=== PATIENT | female | born 1995 | race African-American/Black ===

== ENCOUNTER 2017-07-26 06:25 | Emergency (ER) | payer MEDICAID ==
[~2017-07-26] VITALS: Ht 157.5 cm; Wt 78.0 kg
[2017-07-26] MEDS ORDERED: SODIUM CHLORIDE 0.9% 1,000 ML IV ONE (07:40)
[2017-07-26 08:03] LABS: BASOPHILS % 0.1 % (0.0-2.0); EOSINOPHILS % 0.3 % (0.0-5.0); HEMATOCRIT. 32.4 % (36.0-48.0); HEMOGLOBIN. 11.2 g/dL (12.0-16.0); LYMPHOCYTES % 14.3 % (20.0-50.0); MEAN CORPUSCULAR HEMOGLOBIN 31.4 pg (28.0-32.0); MEAN CORPUSCULAR VOLUME 90.5 fL (81.0-99.0); MEAN PLATELET VOLUME 7.9 fl (7.4-10.4); MONOCYTES % 6.9 % (2.0-8.0); NEUTROPHILS % 78.4 % (40.0-76.0); PLATELET 299 x1000/uL (130-400); RED BLOOD CELL COUNT 3.58 mill/uL (4.2-5.4); RED CELL DISTRIBUTION WIDTH 13.9 % (11.6-14.6)
[2017-07-26] MEDS ORDERED: ACETAMINOPHEN 325MG TABLET PO ONE (08:15)
[2017-07-26 08:20] LABS: CLARITY URINE TURBID (CLEAR); COLOR URINE DARK YELLOW (YELLOW); GLUCOSE URINE NEGATIVE (NEGATIVE); KETONES URINE TRACE (NEGATIVE); LEUKOCYTE ESTERASE URINE 2+ (NEGATIVE); NITRITE URINE NEGATIVE (NEGATIVE); OCCULT BLOOD URINE NEGATIVE (NEGATIVE); PH URINE 5.5 (4.5-8.0); PROTEIN URINE 1+ (NEGATIVE); SPECIFIC GRAVITY URINE 1.029 (1.005-1.030)
[2017-07-26 08:25] LABS: CARBON DIOXIDE 25 mEq/L (21-32); CHLORIDE 105 mEq/L (98-107)
[2017-07-26 08:34] LABS: B-HCG QUANTITATIVE 7421 mIU/mL (<3)
[2017-07-26 08:44] LABS: *AMPHETAMINES SCREEN URINE NEGATIVE (NEGATIVE); *BARBITURATES SCREEN URINE NEGATIVE (NEGATIVE); *BENZODIAZEPINES SCREEN URINE NEGATIVE (NEGATIVE); *COCAINE SCREEN URINE NEGATIVE (NEGATIVE); CANNABINOID URINE SCREEN NEGATIVE (NEGATIVE); METHADONE URINE SCREEN NEGATIVE (NEGATIVE); OPIATES URINE SCREEN NEGATIVE (NEGATIVE); PHENCYCLIDINE URINE SCREEN NEGATIVE (NEGATIVE)
[2017-07-26 11:16] VITALS: BP 111/45
== END 2017-07-26 11:30 | disposition home or self-care (01) ==
LOC: ER 06:39
DX: O26.892 Other specified pregnancy related conditions, second trimester (principal); S00.83XA Contusion of other part of head, initial encounter; R10.9 Unspecified abdominal pain; S60.221A Contusion of right hand, initial encounter; S60.211A Contusion of right wrist, initial encounter; O9A.212 Injury, poisoning and certain other consequences of external causes complicating pregnancy, second trimester; J45.909 Unspecified asthma, uncomplicated; Z3A.20 20 weeks gestation of pregnancy
CPT/HCPCS: 36415; 73100; 73120; 73560; 76805; 80053; 80305; 81001; 81025; 84702; 85025; 96360; 96361; 99285; J7030; Z7610

== ENCOUNTER 2020-01-01 08:00 | Emergency (ER) | payer MEDICAID ==
[~2020-01-01] VITALS: Ht 160 cm; Wt 73.0 kg
[2020-01-01] MEDS ORDERED: SODIUM CHLORIDE 0.9% 1,000 ML IV ONE (08:54)
[2020-01-01] MEDS ORDERED: ONDANSETRON HCL 4MG/2ML INJ IV ONE (09:00)
[2020-01-01] MEDS ORDERED: ACETAMINOPHEN 325MG TABLET PO ONE (09:00)
[2020-01-01 09:32] LABS: CLARITY URINE CLOUDY (CLEAR); COLOR URINE DARK YELLOW (YELLOW); KETONES URINE TRACE (NEGATIVE); LEUKOCYTE ESTERASE URINE 2+ (NEGATIVE); NITRITE URINE NEGATIVE (NEGATIVE); OCCULT BLOOD URINE NEGATIVE (NEGATIVE); PROTEIN URINE TRACE (NEGATIVE); SPECIFIC GRAVITY URINE 1.028 (1.005-1.030)
[2020-01-01 10:03] LABS: BASOPHILS % 0.2 % (0.0-2.0); EOSINOPHILS % 0.8 % (0.0-5.0); HEMATOCRIT. 35.4 % (36.0-48.0); HEMOGLOBIN. 12.4 g/dL (12.0-16.0); LYMPHOCYTES % 19.8 % (20.0-50.0); MEAN CORPUSCULAR HEMOGLOBIN 31.4 pg (28.0-32.0); MEAN PLATELET VOLUME 8.2 fl (7.4-10.4); NEUTROPHILS % 73.2 % (40.0-76.0); PLATELET 278 x1000/uL (130-400); RED BLOOD CELL COUNT 3.94 mill/uL (4.2-5.4); RED CELL DISTRIBUTION WIDTH 13.4 % (11.6-14.6)
[2020-01-01 10:09] LABS: CHLORIDE 105 mEq/L (98-107)
[2020-01-01 10:15] LABS: HCG SCREEN POSITIVE
[2020-01-01 10:34] LABS: B-HCG QUANTITATIVE 84060 mIU/mL (<3)
[2020-01-01 11:30] VITALS: BP 117/54
== END 2020-01-01 11:30 | disposition home or self-care (01) ==
LOC: ER 08:00
DX: O23.41 Unspecified infection of urinary tract in pregnancy, first trimester (principal); O03.9 Complete or unspecified spontaneous abortion without complication; O99.511 Diseases of the respiratory system complicating pregnancy, first trimester; J45.909 Unspecified asthma, uncomplicated; Z3A.13 13 weeks gestation of pregnancy
CPT/HCPCS: 36415; 76801; 80053; 81003; 84702; 84703; 85025; 86850; 86900; 86901; 96361; 96374; 99284; J2405; J7030

== ENCOUNTER 2020-01-30 16:23 | Emergency (ER) | payer MEDICAID ==
[~2020-01-30] VITALS: Ht 160 cm; Wt 74.0 kg
[2020-01-30] MEDS ORDERED: PREN-152 PO (16:33)
[2020-01-30] MEDS ORDERED: ACETAMINOPHEN 325MG TABLET PO PRN (17:15)
[2020-01-30 17:28] LABS: CLARITY URINE CLEAR (CLEAR); COLOR URINE YELLOW (YELLOW); KETONES URINE TRACE (NEGATIVE); LEUKOCYTE ESTERASE URINE 1+ (NEGATIVE); NITRITE URINE NEGATIVE (NEGATIVE); OCCULT BLOOD URINE NEGATIVE (NEGATIVE); PH URINE 6.5 (4.5-8.0); PROTEIN URINE NEGATIVE (NEGATIVE); SPECIFIC GRAVITY URINE 1.028 (1.005-1.030)
[2020-01-30 17:33] LABS: BASOPHILS % 0.4 % (0.0-2.0); EOSINOPHILS % 1.1 % (0.0-5.0); HEMATOCRIT. 30.9 % (36.0-48.0); HEMOGLOBIN. 10.9 g/dL (12.0-16.0); LYMPHOCYTES % 21.7 % (20.0-50.0); MEAN CORPUSCULAR VOLUME 91.1 fL (81.0-99.0); MEAN PLATELET VOLUME 8.1 fl (7.4-10.4); MONOCYTES % 7.4 % (2.0-8.0); NEUTROPHILS % 69.4 % (40.0-76.0); PLATELET 262 x1000/uL (130-400); RED BLOOD CELL COUNT 3.39 mill/uL (4.2-5.4)
[2020-01-30 17:37] LABS: CHLORIDE 107 mEq/L (98-107)
[2020-01-30 18:00] LABS: B-HCG QUANTITATIVE 24751 mIU/mL (<3)
[2020-01-30 18:42] VITALS: BP 119/60
== END 2020-01-30 19:34 | disposition home or self-care (01) ==
LOC: ER 16:23
DX: O23.41 Unspecified infection of urinary tract in pregnancy, first trimester (principal); O32.1XX0 Maternal care for breech presentation, not applicable or unspecified; O99.011 Anemia complicating pregnancy, first trimester; Z3A.14 14 weeks gestation of pregnancy
CPT/HCPCS: 36415; 76815; 80053; 81003; 82962; 84702; 85025; 86850; 86900; 99284

== ENCOUNTER 2020-03-24 20:14 | Observation (INO) | payer MEDICAID ==
[~2020-03-24] VITALS: Ht 160 cm; Wt 92.1 kg
[~2020-03-24 20:14] MED LIST: PREN-152 PO
[2020-03-24 21:16] LABS: CLARITY URINE CLEAR (CLEAR); COLOR URINE DARK YELLOW (YELLOW); KETONES URINE 4+ (NEGATIVE); LEUKOCYTE ESTERASE URINE TRACE (NEGATIVE); NITRITE URINE NEGATIVE (NEGATIVE); OCCULT BLOOD URINE NEGATIVE (NEGATIVE); PH URINE 5.5 (4.5-8.0); PROTEIN URINE 1+ (NEGATIVE); SPECIFIC GRAVITY URINE 1.032 (1.005-1.030)
[2020-03-24 21:32] LABS: *AMPHETAMINES SCREEN URINE NEGATIVE (NEGATIVE); *BARBITURATES SCREEN URINE NEGATIVE (NEGATIVE); *BENZODIAZEPINES SCREEN URINE NEGATIVE (NEGATIVE); *COCAINE SCREEN URINE NEGATIVE (NEGATIVE)
[2020-03-24 21:33] LABS: CANNABINOID URINE SCREEN NEGATIVE (NEGATIVE); METHADONE URINE SCREEN NEGATIVE (NEGATIVE); OPIATES URINE SCREEN NEGATIVE (NEGATIVE); PHENCYCLIDINE URINE SCREEN NEGATIVE (NEGATIVE)
[2020-03-24] MEDS ORDERED: DEXT 5%/LACTATED RINGERS 1,000 ML IV SCH (21:53)
== END 2020-03-25 00:20 | disposition home or self-care (01) ==
LOC: 8 EST LDRP 20:14
PROVIDERS: ADMIT Obstetrics & Gynecology; ATTEND Obstetrics & Gynecology
DX: O26.892 Other specified pregnancy related conditions, second trimester (principal); O62.9 Abnormality of forces of labor, unspecified; R10.9 Unspecified abdominal pain; Z3A.25 25 weeks gestation of pregnancy; Z79.899 Other long term (current) drug therapy
CPT/HCPCS: 80305; 81003; 96360; 96361; 99281; G0378

== ENCOUNTER 2020-03-25 08:22 | Observation (INO) | payer MEDICAID ==
[~2020-03-25] VITALS: Ht 162.6 cm; Wt 92.1 kg
[2020-03-25] MEDS ORDERED: METRONIDAZOLE 500MG TABLET PO SCH (10:00)
[2020-05-23] MEDS ORDERED: NITR-87 PO (02:47)
== END 2020-03-25 11:15 | disposition home or self-care (01) ==
LOC: 8 EST LDRP 08:22
PROVIDERS: ADMIT Obstetrics & Gynecology; ATTEND Obstetrics & Gynecology
DX: O46.92 Antepartum hemorrhage, unspecified, second trimester (principal); Z3A.25 25 weeks gestation of pregnancy
CPT/HCPCS: 76805; 99281; G0378

== ENCOUNTER 2020-05-23 22:13 | Observation (INO) | payer MEDICAID ==
[~2020-05-23] VITALS: Ht 160 cm; Wt 91.6 kg
[~2020-05-23 22:13] MED LIST changes: +NITR-87 PO
[2020-05-23 23:06] LABS: CLARITY URINE CLEAR (CLEAR); COLOR URINE DARK YELLOW (YELLOW); KETONES URINE TRACE (NEGATIVE); LEUKOCYTE ESTERASE URINE TRACE (NEGATIVE); NITRITE URINE NEGATIVE (NEGATIVE); OCCULT BLOOD URINE NEGATIVE (NEGATIVE); PROTEIN URINE 1+ (NEGATIVE); SPECIFIC GRAVITY URINE 1.033 (1.005-1.030)
[2020-05-23 23:17] LABS: *AMPHETAMINES SCREEN URINE NEGATIVE (NEGATIVE); *BARBITURATES SCREEN URINE NEGATIVE (NEGATIVE); *BENZODIAZEPINES SCREEN URINE NEGATIVE (NEGATIVE); *COCAINE SCREEN URINE NEGATIVE (NEGATIVE); METHADONE URINE SCREEN NEGATIVE (NEGATIVE); OPIATES URINE SCREEN NEGATIVE (NEGATIVE)
[2020-05-23 23:18] LABS: CANNABINOID URINE SCREEN NEGATIVE (NEGATIVE); PHENCYCLIDINE URINE SCREEN NEGATIVE (NEGATIVE)
[2020-05-24] MEDS ORDERED: DEXT 5%/LACTATED RINGERS 500 ML IV SCH (00:10)
[2020-05-24] MEDS ORDERED: LACTATED RINGERS 1,000 ML IV SCH (00:15)
[2020-05-24] MEDS ORDERED: BETAMETHASONE ACET/BETAMET 30 MG/5 ML VIAL IM ONE (00:45)
[2020-05-24] MEDS ORDERED: ACETAMINOPHEN 325MG TABLET PO ONE (00:45)
[2020-05-24] MEDS ORDERED: TERBUTALINE SULFATE 1MG/ML VIAL SUBCUT ONE (00:45)
[2020-05-24] MEDS ORDERED: CEFAZOLIN 2,000 MG in DEXT 5% WATER 100 ML IV SCH (01:00)
[2020-05-24] MEDS ORDERED: ONDANSETRON HCL 4MG/2ML INJ IM ONE (01:30)
[2020-05-25] MEDS ORDERED: PNV1TABL50 PO (01:48)
[2020-05-25] MEDS ORDERED: ONDA4TAB5 PO (01:48)
== END 2020-05-24 02:15 | disposition home or self-care (01) ==
LOC: 8 EST LDRP 22:13
PROVIDERS: ADMIT Obstetrics & Gynecology; ATTEND Obstetrics & Gynecology
DX: O26.893 Other specified pregnancy related conditions, third trimester (principal); R10.9 Unspecified abdominal pain; Z3A.33 33 weeks gestation of pregnancy; Z79.899 Other long term (current) drug therapy
CPT/HCPCS: 59025; 76805; 76817; 76818; 80305; 81003; 96361; 96365; 96372; G0378; J0690; J0702; J2405; J3105; J7060; 96360; 99281

== ENCOUNTER 2020-05-25 01:07 | Observation (INO) | payer MEDICAID ==
[~2020-05-25] VITALS: Ht 160 cm; Wt 91.6 kg
[2020-05-25] MEDS ORDERED: ONDA4TAB5 PO (01:48)
[2020-05-25] MEDS ORDERED: PNV1TABL50 PO (01:48)
[2020-05-25] MEDS ORDERED: BETAMETHASONE ACET/BETAMET 30 MG/5 ML VIAL IM SCH (02:00)
== END 2020-05-25 02:50 | disposition left against medical advice (07) ==
LOC: 8 EST LDRP 01:07
PROVIDERS: ADMIT Obstetrics & Gynecology; ATTEND Obstetrics & Gynecology
DX: O26.893 Other specified pregnancy related conditions, third trimester (principal); R10.9 Unspecified abdominal pain; Z3A.33 33 weeks gestation of pregnancy
CPT/HCPCS: 59025; 96372; G0378; J0702; 99281

== ENCOUNTER 2020-06-26 16:06 | Observation (INO) | payer MEDICAID ==
[~2020-06-26] VITALS: Ht 160 cm; Wt 91.6 kg
[~2020-06-26 16:06] MED LIST changes: +PNV1TABL50 PO; -PREN-152 PO
[2020-06-26] MEDS ORDERED: ONDANSETRON HCL 4MG/2ML INJ IV PRN (18:15)
[2020-06-26] MEDS: LACTATED RINGERS 1,000 ML IV SCH ×2 (19:02→20:09)
[2020-06-26 19:39] LABS: CLARITY URINE CLEAR (CLEAR); COLOR URINE YELLOW (YELLOW); KETONES URINE NEGATIVE (NEGATIVE); LEUKOCYTE ESTERASE URINE NEGATIVE (NEGATIVE); NITRITE URINE NEGATIVE (NEGATIVE); OCCULT BLOOD URINE NEGATIVE (NEGATIVE); PH URINE 6.5 (4.5-8.0); PROTEIN URINE NEGATIVE (NEGATIVE); SPECIFIC GRAVITY URINE 1.011 (1.005-1.030); UROBILINOGEN URINE 0.2 E.U./dL (0.2-1.0)
[2020-06-26 19:48] LABS: BASOPHILS % 0.3 % (0.0-2.0); EOSINOPHILS % 0.5 % (0.0-5.0); HEMATOCRIT. 30.5 % (36.0-48.0); HEMOGLOBIN. 10.5 g/dL (12.0-16.0); LYMPHOCYTES % 20.1 % (20.0-50.0); MEAN CORPUSCULAR HEMOGLOBIN 30.7 pg (28.0-32.0); MEAN CORPUSCULAR VOLUME 89.3 fL (81.0-99.0); MEAN PLATELET VOLUME 8.3 fl (7.4-10.4); MONOCYTES % 8.5 % (2.0-8.0); NEUTROPHILS % 70.6 % (40.0-76.0); PLATELET 334 x1000/uL (130-400); RED BLOOD CELL COUNT 3.42 mill/uL (4.2-5.4); RED CELL DISTRIBUTION WIDTH 13.9 % (11.6-14.6)
[2020-06-26] MEDS ORDERED: ACETAMINOPHEN 325MG TABLET PO NR (20:00)
[2020-06-26] MEDS ORDERED: DEXT 5%/LACTATED RINGERS 1,000 ML IV ONE (20:30)
[2020-06-26] MEDS ORDERED: POTASSIUM CHLORIDE 20MEQ TABLET SR PO ONE (21:30)
[2020-06-26] MEDS ORDERED: DIPHENHYDRAMINE 25MG CAPSULE PO NR (22:06)
== END 2020-06-26 22:35 | disposition home or self-care (01) ==
LOC: 8 EST LDRP 16:06
PROVIDERS: ADMIT Obstetrics & Gynecology; ATTEND Obstetrics & Gynecology
DX: O62.9 Abnormality of forces of labor, unspecified (principal); O26.893 Other specified pregnancy related conditions, third trimester; R10.30 Lower abdominal pain, unspecified; Z3A.38 38 weeks gestation of pregnancy
CPT/HCPCS: 36415; 59025; 80051; 81003; 85025; 96361; 96374; G0378; J2405; Q0163; 96360; 99281

== ENCOUNTER 2021-09-03 07:15 | Emergency (ER) | payer MEDICAID ==
[~2021-09-03] VITALS: Ht 172.7 cm; Wt 89.0 kg
[~2021-09-03 07:15] MED LIST changes: +FERR-71 PO; +IBUP-2030 PO; -NITR-87 PO
[2021-09-03] MEDS ORDERED: METOCLOPRAMIDE HCL 10MG TABLET PO ONE (07:45)
[2021-09-03 09:03] LABS: HEMATOCRIT. 35.8 % (36.0-48.0); HEMOGLOBIN. 12.2 g/dL (12.0-16.0); MEAN CORPUSCULAR HEMOGLOBIN 30.3 pg (28.0-32.0); MEAN CORPUSCULAR VOLUME 88.8 fL (81.0-99.0); PLATELET 333 x1000/uL (130-400); RED BLOOD CELL COUNT 4.04 mill/uL (4.2-5.4); RED CELL DISTRIBUTION WIDTH 15.6 % (11.6-14.6)
[2021-09-03 09:33] LABS: CHLORIDE 104 mEq/L (98-107)
[2021-09-03 09:43] LABS: B-HCG QUANTITATIVE 28192 mIU/mL (<3); PLATELET ESTIMATE NORMAL
[2021-09-03] MEDS ORDERED: ACETAMINOPHEN 325MG TABLET PO ONE (10:00)
[2021-09-03 12:10] LABS: CLARITY URINE CLOUDY (CLEAR); COLOR URINE YELLOW (YELLOW); KETONES URINE NEGATIVE (NEGATIVE); LEUKOCYTE ESTERASE URINE 1+ (NEGATIVE); NITRITE URINE NEGATIVE (NEGATIVE); OCCULT BLOOD URINE NEGATIVE (NEGATIVE); PROTEIN URINE TRACE (NEGATIVE); SPECIFIC GRAVITY URINE 1.029 (1.005-1.030); UROBILINOGEN URINE 0.2 E.U./dL (0.2-1.0)
[2021-09-03] MEDS ORDERED: NITR-87 PO (12:35)
[2021-09-03] MEDS ORDERED: TOPUD PO (12:35)
[2021-09-03 13:19] VITALS: BP 143/85
== END 2021-09-03 13:20 | disposition home or self-care (01) ==
LOC: ER 07:15
DX: O26.892 Other specified pregnancy related conditions, second trimester (principal); Z20.822 Contact with and (suspected) exposure to COVID-19; Z3A.18 18 weeks gestation of pregnancy
CPT/HCPCS: 36415; 76805; 80053; 81003; 83605; 84702; 85025; 86850; 86900; 86901; 87040; 87086; 99284; C9803; U0003; U0005; J8597

== ENCOUNTER 2021-12-09 18:46 | Observation (INO) | payer MEDICAID, OTHER ==
[~2021-12-09] VITALS: Ht 165.1 cm; Wt 99.3 kg
[~2021-12-09 18:46] MED LIST changes: +NITR-87 PO; +TOPUD PO
[2021-12-09] MEDS ORDERED: LACTATED RINGERS 1,000 ML IV SCH (19:00)
[2021-12-09] MEDS ORDERED: LACTATED RINGERS 1,000 ML IV ONE (19:00)
[2021-12-09 19:39] LABS: CLARITY URINE CLEAR (CLEAR); COLOR URINE YELLOW (YELLOW); KETONES URINE NEGATIVE (NEGATIVE); LEUKOCYTE ESTERASE URINE TRACE (NEGATIVE); NITRITE URINE NEGATIVE (NEGATIVE); OCCULT BLOOD URINE NEGATIVE (NEGATIVE); PROTEIN URINE NEGATIVE (NEGATIVE); SPECIFIC GRAVITY URINE 1.011 (1.005-1.030); UROBILINOGEN URINE 0.2 E.U./dL (0.2-1.0)
[2021-12-09] MEDS ORDERED: TERBUTALINE SULFATE 1MG/ML VIAL SUBCUT NR (20:30)
[2021-12-09] MEDS ORDERED: CEFAZOLIN 2,000 MG in DEXT 5% WATER 100 ML IV SCH (21:00)
[2021-12-09] MEDS ORDERED: PNV11TAB5 PO (21:27)
== END 2021-12-09 23:00 | disposition home or self-care (01) ==
LOC: 8 EST LDRP 18:46
PROVIDERS: ADMIT Obstetrics & Gynecology; ATTEND Obstetrics & Gynecology
DX: O62.9 Abnormality of forces of labor, unspecified (principal); O99.891 Other specified diseases and conditions complicating pregnancy; M54.9 Dorsalgia, unspecified; Z3A.31 31 weeks gestation of pregnancy
CPT/HCPCS: 59025; 76805; 76818; 81003; 82731; 96361; 96365; 96372; G0378; J0690; J3105; J7060; 99281; G0379

== ENCOUNTER 2024-05-17 10:20 | Emergency (ER) | payer MEDICAID, OTHER ==
[~2024-05-17] VITALS: Ht 162.6 cm; Wt 87.0 kg
[~2024-05-17 10:20] MED LIST changes: -FERR-71 PO; -IBUP-2030 PO; -NITR-87 PO; +PNV11TAB5 PO; -PNV1TABL50 PO; -TOPUD PO
[2024-05-17 10:22] VITALS: O2SAT 98
[2024-05-17 10:53] VITALS: BP 123/76; PULSE 93; RESP 18; TEMP 98.3; O2SAT 99
[2024-05-17] MEDS: DEXAMETHASONE 10 MG/ML VIAL IM ONE (11:45)
[2024-05-17] MEDS ORDERED: PRED5TAB48 MT (12:58)
== END 2024-05-17 13:45 | disposition home or self-care (01) ==
LOC: ER 10:34
DX: B34.9 Viral infection, unspecified (principal)
CPT/HCPCS: 99283; 81025; 87430; 87070; 96372; J1100